=== PATIENT | male | born 1970 | race Caucasian/White ===

== ENCOUNTER 2020-04-23 06:48 | Observation (INO) ==
--- NOTE | 2020-04-21 08:55 | Anesthesiology Consultation ---
Date of Service April 21, 2020 Assessment & Plan (1) Encounter for pre-operative examination: COVID Status: As of 04/21 nurse assessment, patient denies travel to endemic area, known exposure/sick contacts, symptoms, or testing for coronavirus. Chart Review Chart Review: Acceptable Risk for Surgery and Patient NOT seen in Pre Admission Testing History Surgery Operation Date: 04/23/20 08:00 Proposed Procedures p Biventricular ICD Implant w/Anesthesia - Tiffanie Kinsey DO Height/Weight Height: 6 ft 3 in Weight: 145.15 kg Allergies Allergy/AdvReac Type Severity Reaction Status Date / Time codeine AdvReac Mild UPSET Verified 04/21/20 07:32 STOMACH Medications Home Medications Medication Instructions Recorded Confirmed Last Taken furosemide 40 mg PO BID 04/21/20 04/21/20 Unknown metoprolol succinate 25 mg PO QAM 04/21/20 04/21/20 Unknown rosuvastatin 20 mg PO QAM 04/21/20 04/21/20 Unknown sacubitril-valsartan [Entresto] 1 tab PO BID 04/21/20 04/21/20 Unknown spironolactone 12.5 mg PO QAM 04/21/20 04/21/20 Unknown Past Medical History Medical History (Updated 04/21/20 @ 10:19 by Adam Gonsalez) Cardiomyopathy Nonischemic. EF 10-15% at diagnosis 08/[address] [facility] in acute CHF. EF improved to 22% by echo 01/2020 Hyperlipidemia Hypertension Myocardial Infarction AUGUST 2019 Prediabetes DIET CONTROLLED Sleep apnea USES CPAP Past Family History Family History Mother Family history of diabetes mellitus Past Surgical History Surgical History History of cardiac cath AUGUST 2019/NO STENTS History of tooth extraction Social History Smoking Status: Former smoker tobacco type: cigarettes Do You Dip or Chew Tobacco: No Smoking End Date: 2016 Hx Alcohol Use: Yes Alcohol type: beer alcohol intake frequency: a few times a month Hx Substance Use: No substance use type: does not use Testing Laboratory Results 03/24/20 WBC: 6.73 H/H: 16.4/49.1 PLATELETS: 213 SODIUM: 143 POTASSIUM: 4.2 CHLORIDE: 102 CO2: 28 BUN: 16 CREATININE: 1.1 GLUCOSE: 74 A1C: 5.8% Electrocardiogram Date: 08/21/19 Findings: + LBBB and + ST @ (107) Chest X-Ray Date: 08/18/19 Findings: + cardiomegaly Pericardial effusion not excluded. Mild prominence of the central pulmonary vasculature without overt pulmonary vascular congestion. Findings suggestive of COPD with no definite superimposed acute cardiopulmonary disease. Echocardiogram Date: 01/25/20 EF: 22% LV cavity is severely dilated. Mild cLVH. Diffuse HK to AK. LAE suggests diastolic LV dysfunction. LV diastolic dysfunction is present when systolic function is reduced. RV cavity is severely dilated and function is reduced. LA and RA are severely enlarged. No RA mass. Moderate to severe MR present. Moderate TR. Borderline dilated aortic root. The proximal inferior vena cava is dilated. Dilated IVC with reduced collapsibility with sniff indicates an elevated RA pressure of 15mmHg. PASP 56.5 -- moderate pulmonary HTN. No significant change from 08/2019 study.
[~2020-04-23 06:48] MED LIST: LR 15ML/HR IV SCH
[2020-04-23] MEDS ORDERED: LIDOCAINE HCL 1% 20 ML VIAL ONE (06:53)
[2020-04-23] MEDS ORDERED: BUPIVACAINE 0.25% 30 ML VIAL ONE (06:54)
[2020-04-23] MEDS ORDERED: BACITRACIN INJ 50,000 UNIT VIAL ONE (06:54)
[2020-04-23] MEDS ORDERED: fentaNYL citrate 100 MCG/2 ML VIAL ONE (07:12)
[2020-04-23] MEDS ORDERED: MIDAZOLAM HCL 1 MG/ML 2ML VIAL ONE (07:13)
[2020-04-23] MEDS ORDERED: KETAMINE HCL INJ 50 MG/ML 10 ML VIAL ONE (07:16)
[2020-04-23] MEDS ORDERED: CEFAZOLIN 250 MG/ML 1 GM VIAL ONE (07:19)
[2020-04-23] MEDS ORDERED: PHENYLEPHRINE HCL 10 MG/ML VIAL ONE (07:31)
[2020-04-23] MEDS ORDERED: PROPOFOL IV EMULSION 10 MG/ML 20 ML VIAL IV ONE ×3 (07:31→09:33)
[2020-04-23] MEDS ORDERED: ePHEDrine sulfate 50 MG/ML AMP ONE (07:31)
[2020-04-23] MEDS ORDERED: LIDOCAINE HCL 2% 2 ML VIAL/AMP(20MG/ML) INFIL ONE (07:31)
[2020-04-23] MEDS ORDERED: ONDANSETRON INJ 2 MG/ML 2 ML VIAL IV PRN (07:46)
[2020-04-23] MEDS ORDERED: PROMETHAZINE HCL 6.25 MG in SODIUM CHLORIDE 0.9% 50 ML IV PRN (07:46)
[2020-04-23] MEDS ORDERED: fentaNYL citrate 100 MCG/2 ML VIAL IV PRN (07:46)
[2020-04-23] MEDS ORDERED: ePHEDrine sulfate 50 MG/ML AMP IV PRN (07:46)
[2020-04-23] MEDS ORDERED: ATROPINE SULFATE 0.1 MG/ML 10ML SYR IV PRN (07:46)
--- NOTE | 2020-04-23 07:56 | History & Physical Bridge Note ---
Date of Service April 23, 2020 History & Physical Bridge Note I have examined the patient, reviewed the History & Physical and in the interval since the performance of the History & Physical I have noted the following changes of clinical significance: no changes noted
[2020-04-23] MEDS ORDERED: OXYCODONE/ACETAMINOPHEN 5mg/325mg TAB PO PRN (10:45)
[2020-04-23] MEDS ORDERED: ACETAMINOPHEN 325 MG TAB PO PRN (10:45)
--- NOTE | 2020-04-23 10:48 | Operative Report ---
Post Operative Report Pre & Post Diagnosis NICM, LBBB, Chronic Heart failure with reduced EF-NHHA Class II Operation Date: 04/23/20 08:00 <No data on this case meets the specified criteria> I identified the patient and participated in the time-out.: Yes Procedure Operation Date: 04/23/20 08:00 Actual Procedures p ICD Biventricular Implant - Tiffanie Kinsey DO Surgeon Tiffanie Kinsey, Chute Operator none Estimated Blood Loss 20 Findings Consistent with Post-Op Diagnosis Specimens none Description of Procedure see official report I attest to the content of the Intraoperative Record and any orders documented therein. Any exceptions are noted below.
--- NOTE | 2020-04-23 10:53 | Discharge Summary ---
Date of Service April 24, 2020 Admission HPI Per Admitting Provider Pt admitted for elective BIV ICD Admission Exam Per Admitting Provider aaox3, NAD NC/AT, EOMI Supple No JVD Nrl S1/S2, No murmur CTA b/l no w/r/r soft nt/nd no LE edema b/l skin intact no focal deficits Principal Diagnosis NICM s/p BiV HIS bundle ICD Discharge Exam aaox3, NAD NC/AT, EOMI Supple No JVD Nrl S1/S2, No murmur CTA b/l no w/r/r soft nt/nd no LE edema b/l skin intact no focal deficits left pectoral incision intact, no hematoma mild ecchymosis Discharge Data Allergies Allergy/AdvReac Type Severity Reaction Status Date / Time codeine AdvReac Mild UPSET Verified 04/23/20 07:01 STOMACH Procedures Performed Operation Date: 04/23/20 08:00 Actual Procedures p ICD Biventricular Implant - Tiffanie Kinsey, Ordered Studies ECG: AP-His Bundle Paced CXR: Leads in position No PTX BiV ICD Interrogation: Normal function and lead testing since implant 04/23/20 07:30 EP Lab Images for PACS ONCE Hospital Course (1) NICM (nonischemic cardiomyopathy): (2) LBBB (left bundle branch block): (3) Chronic HFrEF (heart failure with reduced ejection fraction): Total Time Total Time Spent Total Time Spent (In Minutes): 40 Total Time Includes: Examination of the Patient, Discharge Planning, Medication Reconciliation and Other Discharge Plan Discharge Items Reason For Visit: NONISCHEMIC CARDIOMYOPATHY Discharge Diagnosis: NICM s/p BiV HIS bundle ICD Condition on Discharge: Good Activity: As commented below Activity Comment: do not lift the left elbow over the left shoulder for 1 month Lifting: No more than 10 pounds Lifting Comment: do not lift more than 10 pounds with the left arm for 2 weeks Bathing: Keep incision dry Bathing Comment: keep dressing on and area dry until your wound check next week Sexual Activity: After two weeks Driving/Machine Use: Resume 1 day after discharge Non-emergency contact: Environmental Technology Professor Call non-emergency contact if: you have any medication questions Diet: Resume previous diet Addtl Attending Provider Instructions: Device and wound check next week at [facility] as scheduled Pending Studies at Discharge: No Stand-Alone Forms: My [facility] Prescriptions: Continued furosemide 40 mg Tablet 40 mg PO BID RF: 0 spironolactone 25 mg Tablet 12.5 mg PO QAM RF: 0 metoprolol succinate 25 mg Tablet Extended Release 24 Hr 25 mg PO QAM RF: 0 rosuvastatin 20 mg Tablet 20 mg PO QAM RF: 0 Entresto 97-103 mg Tablet 1 tab PO BID RF: 0 Admission Data Attending Provider: Tiffanie Kinsey Primary Care Provider: Jada Rojas
--- NOTE | 2020-04-23 11:32 | Anesthesiology Progress Note ---
Date of Service April 23, 2020 Anesthesia Post Procedure Vital Signs Vital Signs: Temp Pulse Resp BP Pulse Ox 04/23/20 11:20 70 20 114/66 95 04/23/20 11:05 70 20 100/66 95 04/23/20 10:50 71 20 96/56 L 95 04/23/20 07:00 37.3 C 78 18 120/55 L 95 Transfer of Care Handoff Completed per policy Notes Mental Status: alert / awake / arousable Patient Amnestic to Procedure: Yes Nausea / Vomiting: adequately controlled Pain: adequately controlled Airway Patency, RR, SpO2: stable & adequate BP & HR: stable & adequate Hydration State: stable & adequate Anesthetic Complications: no major complications apparent
[2020-04-23] MEDS: FUROSEMIDE 40 MG TAB PO SCH (20:16)
[2020-04-23] MEDS: SACUBITRIL-VALSARTAN 97-103 MG TAB PO SCH (20:17)
[2020-04-24 05:18] VITALS: TEMP 98.2
--- NOTE | 2020-04-24 06:03 | Electrocardiogram Report ---
Test Reason : Blood Pressure : / mmHG Vent. Rate : 071 BPM Atrial Rate : 071 BPM P-R Int : 198 ms QRS Dur : 198 ms QT Int : 508 ms P-R-T Axes : 032 041 235 degrees QTc Int : 552 ms AV dual-paced rhythm with frequent ventricular-paced complexes Abnormal ECG No previous ECGs available Confirmed by Hernan Marcum ([id number]) on 04/24/2020 6:02:52 AM Referred By: Tiffanie Kinsey Confirmed By:Hernan Marcum
[2020-04-24 08:24] VITALS: O2SAT 96
--- NOTE | 2020-04-24 08:24 | XRay Report ---
XR chest 2V PA/lateral CLINICAL HISTORY: post BiV HIS Bundle ICD COMPARISON STUDY: No previous studies for comparison. FINDINGS: The heart is mildly enlarged. There is a left subclavian pacer/defibrillator. There is no p neumothorax. There is no failure. There is no focal pulmonary consolidation. There are no pleural eff usions.[ IMPRESSION: No active disease in the chest. ACT 112: Negative or not required by law. Electronically signed by: Karlo Christensen M.D. 04/24/2020 8:23 AM
[2020-04-24 08:26] VITALS: PULSE 69
[2020-04-24] MEDS: SACUBITRIL-VALSARTAN 97-103 MG TAB PO SCH (08:29)
[2020-04-24] MEDS: FUROSEMIDE 40 MG TAB PO SCH (08:30)
[2020-04-24] MEDS ORDERED: ROSUVASTATIN CALCIUM 20 MG TAB PO SCH (09:00)
[2020-04-24] MEDS ORDERED: SPIRONOLACTONE 12.5 MG TAB PO SCH (09:00)
[2020-04-24] MEDS ORDERED: METOPROLOL SUCC 25MG EXT REL TAB PO SCH (09:00)
[2020-04-24 09:02] VITALS: BP 110/67
--- NOTE | 2020-04-30 03:15 | Operative Report (OR) ---
DATE OF OPERATION: 04/23/2020 PREOPERATIVE DIAGNOSES: Nonischemic cardiomyopathy, chronic heart failure with reduced ejection fraction, [place] Heart Association class 3, ejection fraction 10-15%, left bundle branch block. POSTOPERATIVE DIAGNOSES: Nonischemic cardiomyopathy, chronic heart failure with reduced ejection fraction, [place] Heart Association class 3, ejection fraction 10-15%, left bundle branch block. PROCEDURE: Biventricular rate responsive implantable cardiac defibrillator with the LV lead over the His bundle, along with intracardiac electrogram mapping of the His bundle and peripheral venogram, all under fluoroscopic guidance as well as a venogram of the coronary sinus. SURGEON: Tiffanie Kinsey DO ASSISTANTS: None. ANESTHESIA: Monitored anesthetic care administered via anesthesiology. Please defer to their notes for complete details, but they gave 2 mg of Versed, 100 mcg fentanyl, 1000 mg propofol and 400 mg of ketamine. PROCEDURE TIME: 8-10:32. INTRAVENOUS FLUIDS: 150 mL. BLOOD LOSS: 20 mL. CONTRAST: 33 mL. ANTIBIOTICS: 3 grams of Ancef. COMPLICATIONS: None. CONDITION: Stable. URINE OUTPUT: Not applicable. SPECIMENS: None. FINDINGS: See below. DRAINS: None. INDICATIONS: This is a 49-year-old gentleman with past medical history for nonischemic cardiomyopathy diagnosed in August 2019 with an ejection fraction of 10-15% that remains well on repeat studies, chronic heart failure with reduced ejection fraction. [place] Heart Association class 3, left bundle branch block, hyperlipidemia, history of tobacco disorder, obesity, prediabetic. The patient was recommended biventricular defibrillator. CONSENT: Consent was obtained prior to the patient going into electrophysiology lab. The patient was informed of the risks, benefits and alternative procedure. Risks include but not limited to sudden cardiac , cardiac arrhythmias, cerebrovascular accident, myocardial infarction, injury to the blood vessels, chamber of the heart, lung, bleeding, and infection. The patient understood these risks and agrees to proceed. Informed consent was obtained. DESCRIPTION OF THE PROCEDURE: The patient was brought into the electrophysiology lab in a fasting state. He was connected to continuous afterschool. Timeout was performed to ensure patient identity and procedure correctly. The patient was prepped and draped over the left infraclavicular space in normal surgical standard fashion. Ponder precautions were maintained throughout the procedure. The patient received prophylactic antibiotics prior to incision. Ponder precautions were maintained throughout the procedure. Monitored anesthetic care was given throughout the procedure for patient's comfort level via anesthesiology. A 10 mL of 1% lidocaine, bupivacaine mixture were given in the left deltopectoral groove. Incision was made in left deltopectoral groove. Blunt dissection was performed down to identify the cephalic vein, cephalic vein was identified and isolated using 0 silk ties. Then a peripheral venogram was performed with 10 mL of IV contrast to identify the axillary vein and then venous axillary access was obtained through a needlestick without any problems. Going back to the cephalic area, I nicked the vein with an 11 blade and a guidewire was inserted without any resistance. An 8-[place] sheath was inserted over the guidewire without any resistance. Dilator was removed and a second guidewire was inserted through the 8-[place] sheath to allow for retained venous access. Sheath was removed and a 9.5-[place] sheath was inserted over one of the guidewires through the cephalic vein without any difficulties. The dilator and the guidewire were removed and the right ventricular defibrillator lead was advanced into right ventricle and positioned in right ventricular apex under fluoroscopic guidance. There was adequate pacing and sensing thresholds and no diaphragmatic stimulation with high output pacing. The 9.5-[place] sheath was peeled away and lead was fixated to pectoralis muscle using 0 silk suture. An 8-[place] sheath was inserted over the retained guidewire through the cephalic access. The guidewire and dilator removed. The right atrial lead was advanced into right atrium and positioned to atrial appendage under fluoroscopic guidance. There was adequate pacing and sensing thresholds and no diaphragmatic stimulation with high output pacing. The 8-[place] sheath was peeled away and lead was fixated to pectoralis muscle using 0 silk suture. Through the axillary stick, first a 9.5-[place] sheath was inserted over the guidewire without any resistance. The guidewire and dilator were removed. Then an MPX outer sheath and Medtronic coronary sinus sheath was advanced into right atrium. The guidewire and dilator were removed. Then, the coronary sinus was cannulated using a Biosense Decapolar coronary sinus diagnostic catheter and then MPX sheath was advanced over it. Then a venogram of the coronary sinus was performed. The patient had no real good options for a posterolateral branch, so I opted to then perform a His bundle, so the MPX lead was removed and first I tried the His preformed J sheath and advanced that into the right atrium, but I was having difficulty finding the His through intracardiac mapping so I switched out the preformed J His sheath for the deflectable His C304 sheath. This was advanced into the right atrium and then did unipolar mapping with the His lead through the sheath and found intracardiac mapping of the His bundle region. The lead was then screwed in and there was adequate pacing and sensing thresholds and no diaphragmatic stimulation with high output pacing. The deflectable His sheath was split under fluoroscopic guidance. Then the 9.5-[place] sheath was split and the His sheath was secured to the pectoralis muscle using 0 silk ties. A defibrillator pocket was created using blunt dissection over the pectoralis muscle within the pectoral fascia. The pocket was flushed with copious amounts of bacitracin saline wash and inspected for hemostasis. The leads were then attached to the generator making sure that the pins were in appropriate position, passed set screw and set screws were all tightened. The generator was then placed in the pocket, making sure that the leads were lying flat beneath the device. The incision was then closed in 3-layer fashion with 2-0 Vicryl interrupted suture followed by 3-0 Vicryl interrupted suture followed by a 4-0 Monocryl running stitch and Dermabond was applied. EQUIPMENT: 1. The generator is a MedL-3 [employer] DES[employer] RELEASE ENGINEER-D SureScan [id number], serial number [id number]. 2. Right atrial lead Medtronic 5076-52 cm, serial number [id number]. 3. Right ventricular lead, Medtronic 6935M-62 cm, serial [id number]. 4. The His lead is a Medtronic 3830-69 cm, serial number [id number]. INTRACARDIAC MAPPING: AH was 58 milliseconds, HV was 95 milliseconds. The QRS needed was 194 milliseconds, QRS with His pacing was 90 milliseconds. INTRAOPERATIVE LEAD DIAGNOSTICS: 1. Right atrial lead: P-wave 7.1 millivolts, impedance 745 ohms, threshold 0.4 volts at 0.4 milliseconds. 2. Right ventricular lead: R-wave 15.9 millivolts, impedance 730 ohms, threshold 0.3 volts at 0.4 milliseconds. 3. His bundle lead impedance 570 ohms, threshold 0.5 volts at 1 millisecond. FINAL MEASUREMENTS THROUGH THE DEVICE: 1. Right atrial lead: P waves 4 millivolts, impedance 494 ohms, threshold 0.5 volts at 0.4 milliseconds. 2. Right ventricular lead: R-wave 17.4 millivolts, impedance 551 ohms, threshold 0.5 volts at 0.4 milliseconds. 3. The RV coil is 81. 4. His bundle lead impedance 494 ohms, threshold 0.75 volts at 1.0 milliseconds. FINAL PARAMETERS: DDDR with a low rate of 70 and upper tracking rate of 140, right atrial and right ventricular amplitude 3.5 volts, pulse width 0.4 milliseconds, sensitivity 0.3 millivolts. Left ventricular/His bundle 3 volts at 1 millisecond. VT monitor zone at 140 beats per minute for 32 detection intervals, VT zone at 167 beats per minute for 16 detection intervals and VF zone at 200 beats per minute for 30/40 detection intervals. IMPRESSION: Successful biventricular (His bundle) rate responsive implantable cardiac defibrillator implantation along with peripheral venogram and coronary sinus venogram as well as intracardiac electrogram mapping of the His bundle done under fluoroscopic guidance secondary to nonischemic cardiomyopathy, left bundle branch block and chronic heart failure secondary to reduced ejection fraction. PLAN: Monitor patient overnight, 12-lead ECG, chest x-ray. He cannot lift his left elbow below shoulder for 1 month. He cannot lift more than 10 pounds with the left arm for 2 weeks. He is to keep the dressing on and dry until his wound check in [place] in 1 week. I attest to the content of the Intraoperative Record and any orders documented therein. Any exception s are noted below.
== END 2020-04-24 09:30 | disposition home or self-care (01) ==
LOC: 1E 06:48 → EP 06:48
PROC: EPB.ICD (2020-04-23 08:00)
DX: E66.01 Morbid (severe) obesity due to excess calories; I44.7 Left bundle-branch block, unspecified; Z88.6 Allergy status to analgesic agent; Z68.41 Body mass index [BMI] 40.0-44.9, adult; I50.22 Chronic systolic (congestive) heart failure; R73.03 Prediabetes; I42.8 Other cardiomyopathies; Z87.891 Personal history of nicotine dependence; Z79.899 Other long term (current) drug therapy; I27.20 Pulmonary hypertension, unspecified; G47.33 Obstructive sleep apnea (adult) (pediatric)

== ENCOUNTER 2023-05-24 08:09 | Observation (INO) ==
--- NOTE | 2023-05-16 09:36 | Anesthesiology Consultation ---
Date of Service May 16, 2023 Assessment & Plan (1) Encounter for pre-operative examination: - COVID screening: Per assessment on 05/13: No known COVID-19 positive contacts or current COVID-19 related symptoms. Travel screen negative. At surgeon discretion if preop Covid testing being done. - Check BSG AM DOS - Preop testing: No recent CBC. Will check CBC DOS. - Cardiology visit (05/09/23): "Here today for cardiology follow up and preoperative risk stratification. He is planning to have his gall bladder removed at [facility].. In terms of preop risk assessment, per Mina Criteria, patient was counseled that he would be placed at a moderate risk (less than 6.6%)for any adverse perioperative cardiovascular events associated with cholecystectomy surgery. Patient is on a good medication regimen and no other cardiac testing or interventions would further lower that risk.Patient states he understands and is accepting ofthat risk and wishes to proceed with surgery." - PPM/ICD: Case reviewed with Dr. Guillen. He feels that if possible, would want [employer] pacer rep to be available perioperatively. Per Dominga Blanchard/Bryan NAPIER (Rep with [employer]) aware and will be available perioperatively* Chart Review Chart Review: Acceptable Risk for Surgery and Patient NOT seen in Pre Admission Testing Consults Requested none ASA ASA4 Proposed Anesthesia Anesthesia Type: General Anesthesia Line Insertion: Arterial line Risk / Benefits Reviewed With: PT / POA / Parent / Guardian, Accepts Plan and Informed Consent Obtained History Surgery Operation Date: 05/24/23 09:40 Proposed Procedures p Robotic assisted Laparoscopic Cholecystectomy, Possible Cholangiogram, Possible Open - Kirk Gilbert DO Height/Weight Height: 6 ft 3 in Weight: 122.47 kg Allergies Allergy/AdvReac Type Severity Reaction Status Date / Time codeine AdvReac Unknown UPSET Verified 05/24/23 08:39 STOMACH Medications Home Medications Medication Instructions Recorded Confirmed Last Taken furosemide 40 mg tablet 40 mg PO BID 04/21/20 05/24/23 05/24/23 06:30 rosuvastatin 20 mg tablet 20 mg PO QAM 04/21/20 05/24/23 05/24/23 06:30 sacubitril 97 mg-valsartan 103 mg 1 tab PO BID 04/21/20 05/24/23 05/24/23 06:30 tablet (Entresto) spironolactone 25 mg tablet 25 mg PO BID 04/21/20 05/24/23 05/24/23 06:30 dapagliflozin propanediol 10 mg 10 mg PO QAM 04/27/23 05/24/23 05/14/23 06:30 tablet (Farxiga) metoprolol succinate 200 mg 200 mg PO QAM 04/27/23 05/24/23 05/24/23 06:30 tablet,extended release 24 hr Active Medications Generic Name Dose Route Start Last Admin Trade Name Sage PRN Reason Stop Dose Admin Lactated Ringer's 1,000 mls @ 75 mls/hr 05/24/23 06:00 05/24/23 09:10 Lr IV 05/24/23 19:19 Not Given .[id number] MARIMAR Lactated Ringer's 1,000 mls @ 15 mls/hr 05/24/23 06:00 05/24/23 09:05 Lr IV 05/25/23 05:59 15 mls/hr .Q24H MARIMAR Administration NPO Date Last Intake of Fluids: 05/23/23 Time Last Intake of Fluids: 20:00 Date Last Intake of Solids: 05/23/23 Time Last Intake of Solids: 20:00 Past Medical History Medical History Cardiomyopathy Nonischemic. EF 10-15% at diagnosis 08/2019 when presented to [facility] in acute CHF. Hyperlipidemia Hypertension Myocardial Infarction 08/2019 Prediabetes Presence of combination internal cardiac defibrillator (ICD) and pacemaker [employer], implanted 2019 Sleep apnea Could note tolerate CPAP Exercise / Class Metabolic Activity III < 4 Walking/Shop/Light housework Past Family History Family History Mother Family history of diabetes mellitus Past Surgical History Surgical History History of cardiac cath 08/2019 > no stents History of tooth extraction Past Anesthesia History No Hx of Anesthesia Complications and No Family Hx of Anesthesia Complications History of PONV No Hx of PONV and No Hx of Motion Sickness Social History Smoking Status: Former smoker tobacco type: cigarettes Do You Dip or Chew Tobacco: No Smoking End Date: 10 yr ago Hx Alcohol Use: No Alcohol type: beer alcohol intake frequency: a few times a month Hx Substance Use: No substance use type: does not use Physical Exam Vital Signs Last Vital Signs Temp 36.8 C 05/24/23 08:36 Pulse 76 05/24/23 08:36 Resp 20 05/24/23 08:36 BP 114/73 05/24/23 08:36 Pulse Ox 95 05/24/23 08:36 O2 Del Method Room Air 05/24/23 08:36 Constitutional + obese; no acute distress ENMT Mouth: no dentition abnormality Thyromental Distance: > or= 3.5 Finger Breadths Mallampati Class: II Neck normal visual inspection, trachea midline and + facial hair; neck extension not limited Respiratory normal respiratory effort Auscultation: lungs clear to auscultation bilaterally Cardiovascular Rate/Rhythm: regular rate and regular rhythm Heart Sounds: + murmur Vessels: no carotid bruit Chest (Breasts) Chest: + pacemaker (AICD/Pacemaker Left Subclavian) Musculoskeletal Spine: normal cervical ROM and no pain with cervical ROM Extremities: full ROM of extremities Neurologic moves all extremities Motor/Sensory: no sensory deficit Psychiatric Orientation: alert and oriented x 3 Testing Laboratory Results 05/24/23 08:36 05/24/23 08:42 POC Glucose 105 H 05/09/23 SODIUM 140 POTASSIUM 4.4 CHLORIDE 104 CO2 25 BUN 11 CREATININE 0.9 GLUCOSE 103 HGBA1C 5.6% Electrocardiogram Date: 05/09/23 Atrial-sensed ventricular-paced rhythm at 75bpm. Echocardiogram Date: 09/23/21 Calculated EF 22%. Qualitative LV EF <2-%. Severe LVD. Moderately increased cLV wall thickness. Grade I DD. Septal motion consistent with IVCD. Severe LV HK. Biatrial dilatation. Mild to moderate TR. Moderately elevated RVSP. Cardiac Catheterization Date: 08/22/19 Coronary arteries are angiographically normal. LVEDP is elevated (28 mmhg). Recommendations: Non-ischemic cardiomyopathy. Other Testing Cardiac MRI Date: 08/23/19 Interpretation Summary 1. Cardiac MRi findings of severe biventricular dilation and systolic dysfunction. There is severe atypical midwall enhancement in the septum. There is also focal subendocardial scar noted in the mid to distal inferior and inferolateral segments, which is suggestive of infarction. There is also focal hypertrabeculation in the distal anterior segments (ratio of 2.2-3.2). Dyssynchrony is also noted. Overall these findings suggest a mixed etiology for cardiomyopathy. Primary non compaction may be considered, however these findings could also be secondary to severe LV dilation. 2. The left ventricular cavity size is severely enlarged.The LV wall thickness is normal.The left ventricular systolic function is severely reduced.The calculated LV ejection fraction is 16%. 3. The right ventricular cavity size is severely enlarged.The right ventricular systolic function is severely reduced.The calculated RV ejection fraction is 11%. 4. Severe mitral regurgitation noted. 5. Cholelithiasis. Pacer/ICD check Date: 05/09/23 Normal device function Zero events or alerts. Zero shocks. 1 year battery longevity. 1 nonsustained episodes of which the longest is 1 seconds with a ventricular rate of 188bpm. AP 83%. RVP 84%. LVP 84%. CONSTRUCTION MGR pacing 82.69%. AT/AF burden 0%.
[~2023-05-24 08:09] MED LIST changes: +INDOCYANINE GREEN 25 MG VIAL INJ PRN; +LACTATED RINGER'S 1,000 ML IV SCH
[2023-05-24 08:51] LABS: Basophils # (auto) 0.03 K/uL (0-0.2); Basophils % (auto) 0.5 %; Eosinophils % (auto) 1.6 %; Hematocrit (blood only) 45.9 % (42.0-52.0); Hemoglobin 16.4 g/dl (14.0-18.0); Immature Granulocytes # (auto) 0.02 K/uL (0.01-0.20); Immature Granulocytes % (auto) 0.3 %; Lymphocytes # (auto) 1.61 K/uL (1.2-3.4); Lymphocytes % (auto) 26.3 %; Mean Corpuscular Hemoglobin 31.2 pg (25.0-34.0); Mean Corpuscular Hgb Conc 35.7 g/dL (32.0-36.0); Mean Corpuscular Volume 87.3 fL (80.0-100.0); Mean Platelet Volume 8.9 fL (9.4-12.4); Monocytes # (auto) 0.47 K/uL (0.11-0.59); Monocytes % (auto) 7.7 %; Neutrophils # (auto) 3.89 K/uL (1.40-6.50); Neutrophils % (auto) 63.6 %; Platelet Count 191 K/uL (130-400); RDW Coefficient of Variation 12.4 % (11.5-14.5); Red Blood Count 5.26 M/uL (4.70-6.10); White Blood Count 6.12 K/ul (4.8-10.8)
[2023-05-24] MEDS ORDERED: PROPOFOL IV EMULSION 10 MG/ML 20 ML VIAL IV ONE (08:57)
[2023-05-24] MEDS ORDERED: ROCURONIUM BROMIDE 10 MG/ML 5 ML VIAL IV ONE ×5 (08:57)
[2023-05-24] MEDS ORDERED: LIDOCAINE 2% 2 ML VIAL/AMP(20MG/ML) INFIL ONE ×2 (08:58→08:59)
[2023-05-24] MEDS ORDERED: MIDAZOLAM HCL 1 MG/ML 2ML VIAL ONE (09:00)
[2023-05-24] MEDS ORDERED: fentaNYL citrate PF 100 MCG/2 ML VIAL ONE (09:00)
[2023-05-24] MEDS ORDERED: ePHEDrine sulfate 50 MG/ML AMP IV PRN (09:16)
[2023-05-24] MEDS ORDERED: FLUMAZENIL 0.1 MG/1 ML 10 ML VIAL IV PRN (09:16)
[2023-05-24] MEDS ORDERED: fentaNYL citrate PF 100 MCG/2 ML VIAL IV PRN (09:16)
[2023-05-24] MEDS ORDERED: PROMETHAZINE HCL 12.5 MG in SODIUM CHLORIDE 0.9% 50 ML IV PRN (09:16)
[2023-05-24] MEDS ORDERED: ATROPINE SULFATE 0.1 MG/ML 10ML SYR IV PRN (09:16)
[2023-05-24] MEDS ORDERED: ONDANSETRON INJ 2 MG/ML 2 ML VIAL IV PRN ×3 (09:16→16:10)
[2023-05-24] MEDS ORDERED: NALOXONE HCL 0.4 MG/1 ML VIAL/CARP IV PRN (09:16)
--- NOTE | 2023-05-24 09:27 | History & Physical Bridge Note ---
Date of Service May 24, 2023 History & Physical Bridge Note I have examined the patient, reviewed the History & Physical and in the interval since the performance of the History & Physical I have noted the following changes of clinical significance: no changes noted
[2023-05-24] MEDS ORDERED: KETAMINE 50 MG/5 ML SYRINGE ONE (09:56)
[2023-05-24] MEDS ORDERED: SUCCINYLCHOLINE CHLORIDE 20 MG/ML 10 ML VIAL IV ONE (09:57)
[2023-05-24] MEDS ORDERED: BUPIVACAINE/EPINEPHRINE 0.5% MPF 1:200,000 30 ML VIAL ONE (10:03)
--- NOTE | 2023-05-24 11:46 | Post Operative Brief Note ---
PG Immediate Post Op with CF Date of Surgery May 24, 2023 Pre & Post Diagnosis Operation Date: 05/24/23 09:40 Pre-Op Diagnosis: Gallstones Post-Op Diagnosis: Gallstones I identified the patient and participated in the time-out.: Yes Procedure Operation Date: 05/24/23 09:40 Actual Procedures p Robotic assisted Laparoscopic Cholecystectomy(Not Applicable) - Kirk Gilbert DO Surgeon Kirk Gilbert DO Material Assistant Belia Claros PA-C Estimated Blood Loss 5 Findings Consistent with Post-Op Diagnosis Specimens Specimen Description: A. Gallbladder and contents Anesthesia Type General Complications none Disposition Disposition: Recovery Room
--- NOTE | 2023-05-24 11:50 | Operative Report ---
PG Post Operative Report Pre & Post Diagnosis Operation Date: 05/24/23 09:40 Pre-Op Diagnosis: Gallstones Post-Op Diagnosis: Gallstones I identified the patient and participated in the time-out.: Yes Procedure Operation Date: 05/24/23 09:40 Actual Procedures p Robotic assisted Laparoscopic Cholecystectomy(Not Applicable) - Kirk Gilbert DO Surgeon Kirk Gilbert DO Bracelet Form Coverer Belia Claros PA-C Estimated Blood Loss 5 Findings Consistent with Post-Op Diagnosis Fluids see anesthesia record Specimens Gallbladder to pathology Drains None Anesthesia Type General Complications none Disposition Disposition: Recovery Room Indications 52 yo male with symptomatic cholelithiasis Description of Procedure The patient was brought to the operating room and placed in the supine position with both arms extended. At this time he underwent general endotracheal anesthesia without any problems. He was given appropriate pre-operative antibiotics. His abdomen prepped and draped in the usual sterile fashion. A timeout was called, the procedure was verified as robotic assisted laparoscopic cholecystectomy, possible open, possible intra-operative cholangiogram. Surgical, nursing and anesthesia teams agreed and the procedure was begun. After injection of 0.25% Marcaine with epinephrine, a supraumbilical vertical incision was made and carried down to the fascia using S-retractors. The abdominal wall was then elevated with towel clamps and abdomen entered using the Veress needle confirming position using the saline drop test. Pneumoperitoneum was established. 8mm robotic trocar was placed. Laparoscope was introduced. No injury from entry into the abdomen was visualized after inspection of the abdomen. Three further ports were placed under direct visualization. One 5mm insurance account assistant port in the right flank and two 8mm robotic ports in the right and left mid abdomen in the midclavicular line. The robot was then docked without issue and instruments were introduced into the abdomen under direct visualization. At this time the abdomen was inspected and the gallbladder identified. The gallbladder fundus was grasped and retracted cephalad. The gallbladder infundibulum was then grasped and retracted laterally. The cystic duct and cystic artery were then identified and skeletonized. The critical view of safety was obtained. Anatomy was confirmed with firefly. They were both then clipped twice proximally and once distally and then divided using scissors. The gallbladder was then taken off of the liver bed using electrocautery and placed in an endocatch bag and removed from the right mid abdominal port. The liver bed was then inspected and no bile leak or bleeding was evident. The trocars were then removed under direct visualization and no bleeding was present. Abdomen was desufflated. The skin was then closed using 4-0 Monocryl in a subcuticular fashion. Surgical glue was applied. Needle and sponge counts were correct x 2. At this time the patient was awoken from anesthesia and extubated having remained stable throughout the entire case. The patient was then transported to PACU in stable condition. The physician insurance account assistant was present scrubbed the entire case. She was essential in positioning, prepping and draping the patient, retraction and exposure, closure of the incisions and placement of the dressings. I attest to the content of the Intraoperative Record and any orders documented therein. Any exceptions are noted below.
[2023-05-24] MEDS ORDERED: MoRPHine SULFATE 2 MG/ML CARP IV PRN ×2 (11:55→16:10)
[2023-05-24] MEDS ORDERED: MoRPHine SULFATE 4 MG/ML 1 ML CARP\\VIAL IV PRN (11:55)
[2023-05-24] MEDS ORDERED: oxyCODONE/ACETAMINOPHEN 5mg/325mg TAB PO PRN ×2 (11:55)
[2023-05-24] MEDS ORDERED: SODIUM CHLORIDE 0.9% 1000ML 1,000 ML IV SCH (12:00)
--- NOTE | 2023-05-24 13:19 | Anesthesiology Progress Note ---
Date of Service May 24, 2023 Anesthesia Post Procedure Vital Signs Vital Signs: Temp Pulse Pulse Resp BP Pulse Ox O2 Del Method 05/24/23 13:16 36.4 C L 70 18 131/85 92 Nasal Cannula 05/24/23 13:00 36.4 C L 70 20 137/82 95 Nasal Cannula 05/24/23 12:50 70 20 139/76 96 Nasal Cannula 05/24/23 12:40 70 20 149/75 H 97 Nasal Cannula 05/24/23 12:30 70 20 143/83 H 95 Nasal Cannula 05/24/23 12:20 70 18 140/77 95 Nasal Cannula 05/24/23 12:10 67 20 132/74 99 Oxymask 05/24/23 12:08 36.0 C L 64 20 147/79 H 98 Oxymask 05/24/23 08:36 36.8 C 76 20 114/73 95 Room Air O2 Flow Rate 05/24/23 13:16 2 05/24/23 13:00 2 05/24/23 12:50 2 05/24/23 12:40 2 05/24/23 12:30 2 05/24/23 12:20 2 05/24/23 12:10 6 05/24/23 12:08 6 05/24/23 08:36 Pain Intensity Abdomen: Pain Intensity: 4 Transfer of Care Handoff Completed per policy Notes Mental Status: alert / awake / arousable Patient Amnestic to Procedure: Yes Nausea / Vomiting: adequately controlled Pain: adequately controlled Airway Patency, RR, SpO2: stable & adequate BP & HR: stable & adequate Hydration State: stable & adequate Anesthetic Complications: no major complications apparent
[2023-05-24] MEDS ORDERED: ACETAMINOPHEN 325 MG TAB PO PRN (16:10)
[2023-05-24] MEDS ORDERED: oxyCODONE HCL IR 5 MG TAB (IMMEDIATE RELEASE) PO PRN ×2 (16:10)
--- NOTE | 2023-05-24 16:19 | Hospitalist Consultation ---
Date of Consultation May 24, 2023 History of Present Illness Attending Physician: Kirk Gilbert DO History of Present Illness Pravin is a 52-year-old male with a history of nonischemic cardiomyopathy, left bundle branch block, chronic heart failure with reduced ejection fracture, and ICD placement with known EF of 22% who presented for cholecystectomy and who underwent uncomplicated robot-assisted lap bonny with 5 cc of blood loss. With slightly soft blood pressures postoperatively but no blood loss, has been recommended for overnight observation due to his comorbidities Allergies Allergy/AdvReac Type Severity Reaction Status Date / Time codeine AdvReac Unknown UPSET Verified 05/24/23 08:39 STOMACH Home Medications Medication Instructions Recorded Confirmed Type furosemide 40 mg tablet 40 mg PO BID 04/21/20 05/24/23 History rosuvastatin 20 mg tablet 20 mg PO QAM 04/21/20 05/24/23 History sacubitril 97 mg-valsartan 103 mg 1 tab PO BID 04/21/20 05/24/23 History tablet (Entresto) spironolactone 25 mg tablet 25 mg PO BID 04/21/20 05/24/23 History dapagliflozin propanediol 10 mg 10 mg PO QAM 04/27/23 05/24/23 History tablet (Farxiga) metoprolol succinate 200 mg 200 mg PO QAM 04/27/23 05/24/23 History tablet,extended release 24 hr oxycodone 5 mg tablet 5 - 10 mg PO .[id number] PRN pain, 05/24/23 Rx for initial therapy, max 6 tabs per day #15 tabs Patient History Medical History Cardiomyopathy Nonischemic. EF 10-15% at diagnosis 08/2019 when presented to [facility] in acute CHF. Hyperlipidemia Hypertension Myocardial Infarction 08/2019 Prediabetes Presence of combination internal cardiac defibrillator (ICD) and pacemaker [employer], implanted 2019 Sleep apnea Could note tolerate CPAP Surgical History (Updated 05/24/23 @ 12:48 by Nilda Ennis RN) History of cardiac cath 08/2019 > no stents History of tooth extraction Hx laparoscopic cholecystectomy (05/24/23) Robotic assisted Laparoscopic Cholecystectomy(Not Applicable) - Kirk Gilbert DO Family History Mother Family history of diabetes mellitus Social History Smoking Status: Former smoker Tobacco Type: Cigars Smoking End Date: 10 yr ago; Second Hand Exposure: No; Do You Dip or Chew Tobacco: No; Hx Alcohol Use: No Hx Substance Use: No Preferred Language: Korean Communication Ability: Effective Live Truck Operator Required: No Beliefs That Will Affect Care: None marital status: Current Living Situation: Spouse and Family Current Living Situation Comment: and dog current occupational status: employed How many Children do You have: 2 Other Information That Helps Us Care for You: No Feels Safe at Home: Yes Assistive Devices: None Results & Data Results & Data Vital Signs (Past 12 Hours) Vital Signs Temp Pulse Pulse Resp BP Pulse Ox O2 Del Method 05/24/23 16:10 37.0 C 70 18 97/58 L 97 Room Air 05/24/23 16:03 89/57 L 05/24/23 15:35 107/52 L 05/24/23 15:05 97/60 L 05/24/23 14:25 81/58 L 05/24/23 14:15 80/53 L 05/24/23 14:10 69 18 94/56 L 91 Room Air 05/24/23 13:40 71 18 118/84 91 Room Air 05/24/23 13:10 36.4 C L 70 18 131/85 92 Nasal Cannula 05/24/23 13:00 36.4 C L 70 20 137/82 95 Nasal Cannula 05/24/23 12:50 70 20 139/76 96 Nasal Cannula 05/24/23 12:40 70 20 149/75 H 97 Nasal Cannula 05/24/23 12:30 70 20 143/83 H 95 Nasal Cannula 05/24/23 12:20 70 18 140/77 95 Nasal Cannula 05/24/23 12:10 67 20 132/74 99 Oxymask 05/24/23 12:08 36.0 C L 64 20 147/79 H 98 Oxymask 05/24/23 08:36 36.8 C 76 20 114/73 95 Room Air O2 Flow Rate 05/24/23 16:10 05/24/23 16:03 05/24/23 15:35 05/24/23 15:05 05/24/23 14:25 05/24/23 14:15 05/24/23 14:10 05/24/23 13:40 05/24/23 13:10 2 05/24/23 13:00 2 05/24/23 12:50 2 05/24/23 12:40 2 05/24/23 12:30 2 05/24/23 12:20 2 05/24/23 12:10 6 05/24/23 12:08 6 05/24/23 08:36 PG Care Time/CCT Total # of Minutes Spent Total Time Spent with Patient: Total time spent is greater than 50% in coordination of care (as documented) at patient's floor/unit and/or counseling patient: Coding Diagnoses
--- NOTE | 2023-05-24 16:21 | Communication Note ---
Date of Service: May 24, 2023 Pt has NICM w/ AICD,EF 22%. Pt just had this afternoon, a Laparoscopic Cholecystectomy. Pt was stable throughout surgery and PACU. Pt was transferred to [facility] ,phase 2 , to be discharged from there to home. Pt's BP has consistently been in 90's systolic. Most recent BP was 87/59. These are residual effects of the anesthetic/surgery. I do not feel comfortable w/ D/C ing pt to home w/ these BP readings. I have expressed my concern to Dr Gilbert regarding this. He is in agreement and will admit the pt. overnight and contact the hospitalist for further in-house care, as needed. Otherwise, pt. is stable.
--- NOTE | 2023-05-24 17:39 | History & Physical Report ---
Date of Service May 24, 2023 Assessment & Plan (1) Chronic HFrEF (heart failure with reduced ejection fraction): Plan: Postoperative hypotension. -Likely secondary to anesthesia Patient is a 52-year-old male with history of cardiomyopathy , HFrEF with EF 22%, status post biventricular ICD, prediabetes, obesity, who underwent elective cholecystectomy today. Postoperatively he was found hypotensive. Given his history of cardiomyopathy and low EF it was decided to observe patient overnight. Per anesthesia, hypotensive secondary to anesthesia. Patient follows w/ [facility] cardiology. Patient took his metoprolol, furosemide, Entresto, and spironolactone this morning. Received IV fluids perioperatively. We will hold his evening diuretics such as Entresto and spironolactone. Patient can continue with metoprolol in the morning. Reassess volume status and blood pressure tomorrow morning. Currently patient is breathing comfortably on room air and he is clear to auscultation. No lower extremity edema noted. Blood pressure already improved at 107/66. Continue to closely monitor hemodynamic status overnight. Clear liquid diet ordered by surgery. History of Present Illness Chief Complaint: medicine consult - Post-operative hypotension Primary Care Provider: Jada Rojas PA-C Patient is a 52-year-old male with history of cardiomyopathy , HFrEF with EF 22%, status post biventricular ICD, prediabetes, obesity, who underwent elective cholecystectomy today. Patient found hypotensive postoperatively, and was monitored in PACU by anesthesia. There were no complications during surgery identified, no hemorrhaging. Given his history of cardiomyopathy and low EF, it was recommended that patient stays overnight in the hospital and be closely monitored. Patient tells me he takes metoprolol 200 mg daily, spironolactone 25 mg twice a day, Entresto twice a day, and furosemide daily. He took all these medications in the morning. Currently he is lying in bed in PACU, he is alert oriented answering appropriately. He overall feels well, denies any chest pain or shortness of breath. He is breathing comfortably on room air. He has only minimal abdominal discomfort, and he feels hungry. Discussed with the nurse at the bedside at PACU. Patient received IV fluids. He has a room assigned on telemetry and awaiting transfer upstairs. Allergies Allergy/AdvReac Type Severity Reaction Status Date / Time codeine AdvReac Unknown UPSET Verified 05/24/23 08:39 STOMACH Home Medications Medication Instructions Recorded Confirmed Type furosemide 40 mg tablet 40 mg PO BID 04/21/20 05/24/23 History rosuvastatin 20 mg tablet 20 mg PO QAM 04/21/20 05/24/23 History sacubitril 97 mg-valsartan 103 mg 1 tab PO BID 04/21/20 05/24/23 History tablet (Entresto) spironolactone 25 mg tablet 25 mg PO BID 04/21/20 05/24/23 History dapagliflozin propanediol 10 mg 10 mg PO QAM 04/27/23 05/24/23 History tablet (Farxiga) metoprolol succinate 200 mg 200 mg PO QAM 04/27/23 05/24/23 History tablet,extended release 24 hr oxycodone 5 mg tablet 5 - 10 mg PO .[id number] PRN pain, 05/24/23 Rx for initial therapy, max 6 tabs per day #15 tabs Past Med/Surg History Medical History Cardiomyopathy Nonischemic. EF 10-15% at diagnosis 08/[address] [facility] in acute CHF. Hyperlipidemia Hypertension Myocardial Infarction 08/2019 Prediabetes Presence of combination internal cardiac defibrillator (ICD) and pacemaker Medtronic, implanted 2019 Sleep apnea Could note tolerate CPAP Surgical History History of cardiac cath 08/2019 > no stents History of tooth extraction Hx laparoscopic cholecystectomy (05/24/23) Robotic assisted Laparoscopic Cholecystectomy(Not Applicable) - Kirk Gilbert, DO Family History Mother Family history of diabetes mellitus Social History Smoking Status: Never smoker Tobacco Type: Cigars Smoking End Date: 10 yr ago; Second Hand Exposure: No; Do You Dip or Chew Tobacco: No; Hx Alcohol Use: No Hx Substance Use: No Preferred Language: Lithuanian Communication Ability: Effective 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 Beliefs That Will Affect Care: None marital status: Current Living Situation: Spouse Current Living Situation Comment: and dog current occupational status: employed How many Children do You have: 2 Other Information That Helps Us Care for You: No Feels Safe at Home: Yes Safety Concerns: Feels Safe At This Time Assistive Devices: None Review of Systems Review of Systems: All systems reviewed & are unremarkable except as noted in Subjective Physical Exam Constitutional: WD/WN, vitals as above Eyes: PERRL, conjunctivae normal, anicteric sclerae ENMT: external ear and nose normal, oropharynx normal Neck: + thick neck Respiratory: normal respiratory effort, lungs clear to auscultation Cardiovascular: RRR, no murmur, no edema Chest (Breasts): Chest: normal inspection of chest Gastrointestinal (Abdomen): Inspection/Auscultation: normal bowel sounds (soft obese abdomen w/ surg. incisions) Musculoskeletal: no cyanosis or clubbing, extremities motor strength 5/5 Skin: no rashes, warm and dry Neurologic: PERRL, EOMI, accommodation nl, no face palsy, no dysarthria Psychiatric: A+Ox3, euthymic affect Results & Data Results & Data Vital Signs (Past 12 Hours) Vital Signs Temp Pulse Pulse Resp BP Pulse Ox O2 Del Method 05/24/23 17:15 36.5 C 70 16 98/61 L 98 Room Air 05/24/23 16:10 37.0 C 70 18 97/58 L 97 Room Air 05/24/23 16:03 89/57 L 05/24/23 15:35 107/52 L 05/24/23 15:05 97/60 L 05/24/23 14:25 81/58 L 05/24/23 14:15 80/53 L 05/24/23 14:10 69 18 94/56 L 91 Room Air 05/24/23 13:40 71 18 118/84 91 Room Air 05/24/23 13:10 36.4 C L 70 18 131/85 92 Nasal Cannula 05/24/23 13:00 36.4 C L 70 20 137/82 95 Nasal Cannula 05/24/23 12:50 70 20 139/76 96 Nasal Cannula 05/24/23 12:40 70 20 149/75 H 97 Nasal Cannula 05/24/23 12:30 70 20 143/83 H 95 Nasal Cannula 05/24/23 12:20 70 18 140/77 95 Nasal Cannula 05/24/23 12:10 67 20 132/74 99 Oxymask 05/24/23 12:08 36.0 C L 64 20 147/79 H 98 Oxymask 05/24/23 08:36 36.8 C 76 20 114/73 95 Room Air O2 Flow Rate 05/24/23 17:15 05/24/23 16:10 05/24/23 16:03 05/24/23 15:35 05/24/23 15:05 05/24/23 14:25 05/24/23 14:15 05/24/23 14:10 05/24/23 13:40 05/24/23 13:10 2 05/24/23 13:00 2 05/24/23 12:50 2 05/24/23 12:40 2 05/24/23 12:30 2 05/24/23 12:20 2 05/24/23 12:10 6 05/24/23 12:08 6 05/24/23 08:36 Laboratory Results 05/24/23 05/24/23 Range/Units 08:42 08:36 WBC 6.12 (4.8-10.8) K/ul RBC 5.26 (4.70-6.10) M/uL Hgb 16.4 (14.0-18.0) g/dl Hct 45.9 (42.0-52.0) % MCV 87.3 (80.0-100.0) fL MCH 31.2 (25.0-34.0) pg MCHC 35.7 (32.0-36.0) g/dL RDW Std Deviation 39.0 (36.4-46.3) fL RDW Coeff of Katiana 12.4 (11.5-14.5) % Plt Count 191 (130-400) K/uL MPV 8.9 L (9.4-12.4) fL Immature Gran % (Auto) 0.3 % Neut % (Auto) 63.6 % Lymph % (Auto) 26.3 % [place] % (Auto) 7.7 % Eos % (Auto) 1.6 % Baso % (Auto) 0.5 % Neut # (Auto) 3.89 (1.40-6.50) K/uL Lymph # (Auto) 1.61 (1.2-3.4) K/uL [place] # (Auto) 0.47 (0.11-0.59) K/uL Eos # (Auto) 0.10 (0-0.50) K/uL Baso # (Auto) 0.03 (0-0.2) K/uL Immature Gran # (Auto) 0.02 (0.01-0.20) K/uL POC Glucose 105 H (70-99) mg/dl Medications Administered Current Inpatient Medications Acetaminophen (Acetaminophen 325 Mg Tab) 650 mg PO Q6H PRN PRN Reason: Pain & Pre PT Stop: 06/23/23 16:09 Lactated Ringer's (Lr) 1,000 mls @ 75 mls/hr IV .[id number] MARIMAR Stop: 05/24/23 19:19 Last Admin: 05/24/23 09:10 Dose: Not Given Cefazolin Sodium (Ancef 3000mg) 72.5 mls @ 130 mls/hr IV PREOP MARIMAR; Protocol Stop: 05/24/23 18:00 Last Admin: 05/24/23 10:21 Dose: 130 mls/hr Lactated Ringer's (Lr) 1,000 mls @ 15 mls/hr IV .Q24H MARIMAR Stop: 05/25/23 05:59 Last Infusion: 05/24/23 10:21 Dose: Infused Sodium Chloride (Nss 1000ml) 1,000 mls @ 15 mls/hr IV .Q24H MARIMAR Stop: 05/25/23 11:59 Indocyanine Green (Indocyanine Green 25 Mg Vial) 2.5 mg INJ ONE PRN PRN Reason: PROP CUTTER Stop: 05/24/23 18:00 Last Admin: 05/24/23 09:29 Dose: 2.5 mg Morphine Sulfate (Morphine Sulfate 4 Mg/Ml 1 Ml Carp\Vial) 4 mg IV Q3H PRN PRN Reason: Pain (6,7,8,9,10) Stop: 06/07/23 11:54 Morphine Sulfate (Morphine Sulfate 2 Mg/Ml Carp) 2 mg IV Q3H PRN PRN Reason: Pain (1,2,3,4,5) & Pre PT Stop: 06/07/23 11:54 Morphine Sulfate (Morphine Sulfate 2 Mg/Ml Carp) 2 mg IV Q3H PRN PRN Reason: Pain (1,2,3,4,5) & Pre PT Stop: 06/07/23 16:09 Ondansetron HCl (Ondansetron Inj 2 Mg/Ml 2 Ml Vial) 4 mg IV Q6H PRN PRN Reason: Nausea And Vomiting Stop: 05/25/23 11:54 Ondansetron HCl (Ondansetron Inj 2 Mg/Ml 2 Ml Vial) 4 mg IV Q4H PRN PRN Reason: Nausea And Vomiting Stop: 06/23/23 16:09 Oxycodone HCl (Oxycodone Hcl Ir 5 Mg Tab (Immediate Release)) 10 mg PO Q4H PRN PRN Reason: SEVERE Pain (7,8,9,10) Stop: 06/07/23 16:09 Oxycodone HCl (Oxycodone Hcl Ir 5 Mg Tab (Immediate Release)) 5 mg PO Q4H PRN PRN Reason: MODERATE Pain (4,5,6) & Pre PT Stop: 06/07/23 16:09 Oxycodone/Acetaminophen (Oxycodone/Acetaminophen 5mg/325mg Tab) 2 tab PO Q4H PRN PRN Reason: SEVERE Pain (7,8,9,10) Stop: 06/07/23 11:54 Oxycodone/Acetaminophen (Oxycodone/Acetaminophen 5mg/325mg Tab) 1 tab PO Q4H PRN PRN Reason: MODERATE Pain (4,5,6) & Pre PT Stop: 06/07/23 11:54 Code Status & VTE Plan VTE Prophylaxis Plan VTE Prophylaxis will be ordered: Yes
--- NOTE | 2023-05-25 08:24 | Surgery Progress Note ---
Date of Service May 25, 2023 Assessment & Plan (1) Hx laparoscopic cholecystectomy: Plan: POD 1 robotic assisted cholecystectomy Patient was admitted over night for observation of low blood pressure noted in PACU Patient sitting up in chair comfortable, vss, has been normotensive since 05/24/26 at 1800 Reports pain mild at incisional areas controlled with medication tolerating breakfast, denies nausea at present time passing small amt flatus, no BM post operative port sites covered with dermabond, clean and dry no s/s of infection noted, patient wishes to go home, patient is stable from a surgical stand point is to f/u in office in [address] Gilbert / call office with concerns patient denies questions patient will need to see cardiology prior to discharge. Admission and Anticipated Discharge Date Admission Date: May 24, 2023 Subjective POD 1 robotic assisted cholecystectomy Patient was admitted over night for observation of low blood pressure Patient sitting up in chair comfortable, vss Reports pain mild at incisional areas controlled with medication tolerating breakfast, denies nausea presently passing small amt flatus, no BM Review of Systems Constitutional: no fever and no chills Respiratory: no dyspnea Gastrointestinal: + abdominal pain (surgical incisions); no nausea and no vomiting Physical Exam Physical Exam: pt alert/awake sitting in chair watching tv Constitutional: well nourished, cooperative and comfortable; no acute distress Respiratory: normal respiratory effort; no respiratory distress and does not use accessory muscles Cardiovascular: Rate/Rhythm: regular rate BP 116/69. BP WNL since 1800 on 05/24/23 Gastrointestinal (Abdomen): Inspection/Auscultation: + abdominal surgical incision (3 port sites clean dry covered with dermabond no s/s of infection noted.) Percussion/Palpation: abdomen soft Results & Data Vital Signs (Past 12 Hours) Vital Signs Temp Pulse Pulse Resp BP Pulse Ox O2 Del Method 05/25/23 07:32 98.8 F 71 18 116/69 91 Room Air 05/25/23 03:01 99.1 F 70 18 122/72 90 Room Air 05/24/23 23:00 88 05/24/23 22:40 98.6 F 70 18 116/70 94 Room Air PG Care Time/CCT Total # of Minutes Spent Total Time Spent with Patient: Total time spent is greater than 50% in coordination of care (as documented) at patient's floor/unit and/or counseling patient: Coding Level of Care Code 63740 Post Operative Follow-Up Diagnoses Hx laparoscopic cholecystectomy Z90.49
[2023-05-25 08:45] LABS: Basophils # (auto) 0.03 K/uL (0-0.2); Basophils % (auto) 0.4 %; Eosinophils # (auto) 0.06 K/uL (0-0.50); Eosinophils % (auto) 0.7 %; Hematocrit (blood only) 44.1 % (42.0-52.0); Hemoglobin 15.6 g/dl (14.0-18.0); Immature Granulocytes # (auto) 0.03 K/uL (0.01-0.20); Immature Granulocytes % (auto) 0.4 %; Lymphocytes # (auto) 1.18 K/uL (1.2-3.4); Lymphocytes % (auto) 14.4 %; Mean Corpuscular Hemoglobin 30.9 pg (25.0-34.0); Mean Corpuscular Hgb Conc 35.4 g/dL (32.0-36.0); Mean Corpuscular Volume 87.3 fL (80.0-100.0); Mean Platelet Volume 9.1 fL (9.4-12.4); Monocytes # (auto) 0.34 K/uL (0.11-0.59); Monocytes % (auto) 4.1 %; Neutrophils # (auto) 6.57 K/uL (1.40-6.50); Platelet Count 182 K/uL (130-400); RDW Coefficient of Variation 12.5 % (11.5-14.5); RDW Standard Deviation 39.5 fL (36.4-46.3); Red Blood Count 5.05 M/uL (4.70-6.10); White Blood Count 8.21 K/ul (4.8-10.8)
[2023-05-25] MEDS ORDERED: METOPROLOL SUCC 50MG EXT REL TAB PO SCH (09:00)
[2023-05-25 09:04] LABS: BUN Creatinine Ratio 14.8 (10-20); Calcium 9.2 mg/dl (8.6-10.3); Creatinine Clr Calc Pharmacy 139.4 ml/min; Est GFR (African American) 113.7 ml/min; Est GFR (Non-African American) 98.1 ml/min; Potassium 3.7 mmol/L (3.5-5.1)
--- NOTE | 2023-05-25 10:19 | Cardiology Consultation ---
Date of Consultation May 25, 2023 Assessment & Plan (1) Postoperative hypotension: (2) Hx laparoscopic cholecystectomy: (3) Noncompaction cardiomyopathy: (4) HFrEF (heart failure with reduced ejection fraction): Plan The patient's postoperative hypotension was most likely due to the effects of anesthesia in combination with uninterrupted continuation of medications specifically sacubitril/valsartan. His blood pressure has recovered and he is feeling well. Recommend continuing metoprolol without interruption. I would hold furosemide and spironolactone today then resume tomorrow morning. I would restart Entresto at 1/2 tablet twice a day starting tonight then increase the dose back to his regular dose as long as his blood pressure is acceptable. In the future, for surgery, I advised the patient to hold Entresto and diuretics the morning of the procedure and hold Farxiga 3 days prior to scheduled surgery; Metoprolol to be continued without interruption. Outpatient cardiology follow-up with [facility] who has been contacted to arrange for a f ollow-up blood pressure check later this week. Supervising Physician Co-Signing Physician Notes Agree with above PA-C assessment and plan. Patient discharged prior to evaluation by the undersigned. History of Present Illness Reason for Consultation: Post operative hypotension, cardiomyopathy Requesting Physician: Florecita Attending Physician: Vladimir History of Present Illness Mr. Pravin Dahl is a 52 year old male who underwent robotic assisted laparoscopic cholecystectomy by Dr. Kirk Gilbert without complication in the morning of May 24, 2023. Due to persistent postoperative hypotension the patient was admitted for observation. It should be noted that the patient took all of his outpatient medications the morning of the surgery except for Farxiga. He received IV fluids perioperatively. Last evening furosemide, spironolactone, and Entresto were held with improvement in blood pressure. Patient seen and examined at approximately 9:30 AM on May 25, 2023. He is without complaint. His most recent blood pressure reading was 116/69. He specifically denies chest pain, palpitations, shortness of breath, cough, chest congestion, orthopnea, PND, peripheral edema, fatigue, lightheadedness, dizziness, near syncope, fevers, or chills. + Controlled abdominal discomfort. No nausea or vomiting. No issues eating breakfast. No BM today. Past Medical and Surgical History: GeneticNon-CompactionDilatedNonischemic Cardiomyopathy, HFrEFand RV dysfunction. EF 20-25%. Status post April 23, 2020 Bi-V/ICD implantation Mild Mitral regurgitation Mild tricuspid regurgitation Hypertension Hyperlipidemia JULIO- unable to tolerate CPAP Prediabetes Family History: Not notable for premature CAD. Mother with lymphoma. Social History: Nonsmoker. No alcohol. No illegal drug use. pump machine operator, [employer]. . Allergies Allergy/AdvReac Type Severity Reaction Status Date / Time codeine AdvReac Unknown UPSET Verified 05/24/23 08:39 STOMACH Home Medications Medication Instructions Recorded Confirmed Type rosuvastatin 20 mg tablet 20 mg PO QAM 04/21/20 05/24/23 History dapagliflozin propanediol 10 mg 10 mg PO QAM 04/27/23 05/24/23 History tablet (Farxiga) metoprolol succinate 200 mg 200 mg PO QAM 04/27/23 05/24/23 History tablet,extended release 24 hr oxycodone 5 mg tablet 5 - 10 mg PO .[id number] PRN pain, 05/24/23 Rx for initial therapy, max 6 tabs per day #15 tabs furosemide 40 mg tablet 40 mg PO BID #30 tabs 05/25/23 05/24/23 Rx sacubitril 97 mg-valsartan 103 mg 0.5 tab PO BID #30 tabs 05/25/23 05/24/23 Rx tablet (Entresto) spironolactone 25 mg tablet 25 mg PO BID #30 tabs 05/25/23 05/24/23 Rx Patient History Medical History Cardiomyopathy Nonischemic. EF 10-15% at diagnosis 08/2019 when presented to [facility] in acute CHF. Hyperlipidemia Hypertension Myocardial Infarction 08/2019 Prediabetes Presence of combination internal cardiac defibrillator (ICD) and pacemaker Medtronic, implanted 2019 Sleep apnea Could note tolerate CPAP Surgical History History of cardiac cath 08/2019 > no stents History of tooth extraction Hx laparoscopic cholecystectomy (05/24/23) Robotic assisted Laparoscopic Cholecystectomy(Not Applicable) - Kirk Gilbert DO Family History Mother Family history of diabetes mellitus Social History Smoking Status: Never smoker Tobacco Type: Cigars Second Hand Exposure: No; Do You Dip or Chew Tobacco: No; Hx Alcohol Use: No Hx Substance Use: No Preferred Language: Upper Sorbian Communication Ability: Effective Visual Impairment: No Limitations Photo Mask Inspector Required: No Beliefs That Will Affect Care: None marital status: Current Living Situation: Spouse Current Living Situation Comment: and dog current occupational status: employed How many Children do You have: 2 Feels Safe at Home: Yes Assistive Devices: None Review of Systems Review of Systems: Complete review of systems is otherwise as stated above, negative, or noncontributory. Physical Exam Physical Exam: General: A&Ox3. NAD. HENT: Normocephalic. Atraumatic. Eyes: PER. Conjunctiva pink, sclera clear. Neck: No carotid bruits. No JVD. Heart: RRR. No murmur. No rub. No gallop. Lungs: Clear to auscultation. Abdomen: +BS. Extremities: Minimal edema. Excoriations without evidence of cellulitis. No clubbing. No cyanosis. Limited neurological examination is without focal deficits. Pulses: radial=2/4, posterior tibial=2/4. Results & Data Vital Signs (Past 12 Hours) Vital Signs Temp Pulse Pulse Resp BP Pulse Ox O2 Del Method 05/25/23 07:00 70 05/25/23 09:31 37.1 C 71 18 116/69 91 05/25/23 07:32 37.1 C 71 18 116/69 91 Room Air 05/25/23 03:01 37.3 C 70 18 122/72 90 Room Air 05/24/23 23:00 88 05/24/23 22:40 37.0 C 70 18 116/70 94 Room Air Laboratory Results CBC 05/25/23 Range/Units 08:22 WBC 8.21 (4.8-10.8) K/ul RBC 5.05 (4.70-6.10) M/uL Hgb 15.6 (14.0-18.0) g/dl Hct 44.1 (42.0-52.0) % Plt Count 182 (130-400) K/uL Neut # (Auto) 6.57 H (1.40-6.50) K/uL Lymph # (Auto) 1.18 L (1.2-3.4) K/uL [place] # (Auto) 0.34 (0.11-0.59) K/uL Eos # (Auto) 0.06 (0-0.50) K/uL Baso # (Auto) 0.03 (0-0.2) K/uL Comprehensive Metabolic Panel 05/25/23 Range/Units 08:22 Sodium 135 L (136-145) mmol/L Potassium 3.7 (3.5-5.1) mmol/L Chloride 101 (98-107) mmol/L Carbon Dioxide 29 (21-32) mmol/L BUN 13 (6-23) mg/dl Creatinine 0.88 (0.6-1.4) mg/dl Glucose 167 H (70-99(Fasting)) mg/dl Calcium 9.2 (8.6-10.3) mg/dl Intake and Output 05/24/23 05/25/23 05/25/23 22:59 06:59 14:59 Intake Total 2572.5 / 3197.5 0 / 3197.5 Balance 2572.5 / 3192.5 0 / 3192.5 Intake: IV 72.5 / 72.5 ceFAZolin 3000MG 72.5 ml @ 130 72.5 / 72.5 mls/hr IV PREOP MARIMAR Rx#: [id number] IV Perioperative 1999 / 2624 Oral 500 / 500 0 / 500 Other: # Unmeasured Voids 0 2 Weight 131.9 kg 130.5 kg 130.5 kg Weight Measurement Method Standing Scale Built in [facility] Patient Weight 05/26/23 06:59 Weight 130.5 kg Diagnostic Findings Device interrogation on May 09, 2023 demonstrated appropriate function. Only 12 months remaining longevity noted at that time. Lower rate set at 70 bpm. No AT/AF. 4 episodes of NSVT. No VT. No VF. Effective BiV pacing 84%. 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 No arrhythmias observed.
--- NOTE | 2023-05-25 13:39 | Discharge Summary ---
Date of Service May 25, 2023 Admission HPI Per Admitting Provider Patient is a 52-year-old male with history of cardiomyopathy , HFrEF with EF 22%, status post biventricular ICD, prediabetes, obesity, who underwent elective cholecystectomy today. Patient found hypotensive postoperatively, and was monitored in PACU by anesthesia. There were no complications during surgery identified, no hemorrhaging. Given his history of cardiomyopathy and low EF, it was recommended that patient stays overnight in the hospital and be closely monitored. Patient tells me he takes metoprolol 200 mg daily, spironolactone 25 mg twice a day, Entresto twice a day, and furosemide daily. He took all these medications in the morning. Currently he is lying in bed in PACU, he is alert oriented answering appropriately. He overall feels well, denies any chest pain or shortness of breath. He is breathing comfortably on room air. He has only minimal abdominal discomfort, and he feels hungry. Discussed with the nurse at the bedside at PACU. Patient received IV fluids. He has a room assigned on telemetry and awaiting transfer upstairs. Principal Diagnosis s/p laparoscopic cholecystectomy postoperative hypotension heart failure with reduced ejection fraction Discharge Exam awake/alert, no distress Respiratory normal respiratory effort Gastrointestinal (Abdomen) Inspection/Auscultation: + abdominal surgical incision (c/d/i with surgical dressings in place) Discharge Data Allergies Allergy/AdvReac Type Severity Reaction Status Date / Time codeine AdvReac Unknown UPSET Verified 05/24/23 08:39 STOMACH Consultations 05/24/23 16:27 Consult Hospitalist Routine 05/25/23 08:01 Consult Cardiology Routine Procedures Performed Operation Date: 05/24/23 09:40 Actual Procedures p Robotic assisted Laparoscopic Cholecystectomy(Not Applicable) - Kirk Gilbert DO Hospital Course (1) Hx laparoscopic cholecystectomy: This is a 52yM who presented to the [facility] on 05/24/23 for elective robotic assisted cholecystectomy. The patient tolerated the procedure well, see op note for full details. The patient recovered in the PACU. Anesthesia followed him closely and he was noted to have some soft pressures in the post op period. HRs stable. It was recommended given the patient's history of low EF and cardiomyopathy he be admitted for overnight observation. The patient otherwise was feeling well with no acute complaints. The hospitalists were consulted for their assistance in addition to cardiology who made recommendations on his home medication regimen. His BP improved. Patient tolerated a diet advancement and pa in remained well controlled. On POD#1 he was deemed stable for discharge to home with close follow up. Total Time Total Time Spent Total Time Spent (In Minutes): 15 Discharge Plan Discharge Items Patient Disposition: Home - Self-Care Reason For Visit: S/P ROBOT BLAYNE, H/O CARDIOMYOPATHY Discharge Diagnosis: Robotic assisted Laparoscopic Cholecystectomy Activity: As commented below Lifting: No more than 10 pounds Bathing Comment: you may shower 05/25/23 no bathes or hot tubs for 2 weeks Exercise/Sports: Wait until after follow-up appointment Non-emergency contact: Surgeon Call non-emergency contact if: you have any medication questions, your symptoms worsen, your pain is worsening, your pain is concerning for you, your temperature is above 101, your wound has increased redness, your wound has increased drainage and your wound pain has increased Follow-up/Referrals: Kirk Gilbert DO [Physician] - (call office for follow up appointment in 2 weeks ) Jada Rojas PA-C [Primary Care Provider] - Diet: Other - See Diet Comment Diet Comment: resume previous diet Addtl Attending Provider Instructions: You have surgical glue called dermabond on your surgical site incisions. You may shower with this on. This will tend to come off within a couple of weeks. Do not pick at it. You may purchase Tylenol and/or Ibuprofen over the counter if needed for additional pain control over the next few days. Take per manufacturers instructions Pending Studies at Discharge: Yes Studies:: surgical pathology Stand-Alone Forms: Anesthesia/Sedation, Adult, [facility] Medications and DC Order Prescriptions: New oxycodone 5 mg tablet 5 - 10 mg PO .[id number] PRN (Reason: pain, for initial therapy, max 6 tabs per day) Qty: 15 0RF Continued rosuvastatin 20 mg Tablet 20 mg PO QAM furosemide 40 mg Tablet 40 mg PO BID Qty: 30 0RF Rx Instructions: start tomorrow morning spironolactone 25 mg Tablet 25 mg PO BID Qty: 30 0RF Rx Instructions: start tomorrow morning metoprolol succinate 200 mg tablet extended release 24 hr 200 mg PO QAM Farxiga 10 mg tablet 10 mg PO QAM Changed Entresto 97-103 mg Tablet 0.5 tab PO BID Qty: 30 0RF Rx Instructions: start tonight Discharge Orders: Discharge Order (Routine); Ordered 05/25/23 Ordered By: Adam Keller/[place] Patient Handouts: DVT Post Op Prevention Admission Data Admit Date/Time: 05/24/23 16:11 Attending Provider: Kirk Gilbert Admit Provider: Kirk Gilbert Primary Care Provider: Jada Rojas Other Providers: Americo Avila ; Kristen Rascon ; Leeanne Eisenberg I. ; Kennedy Steel ; Selena Parisi ; Marcela Razo ; Uzma Babcock ; Carol Jennings ; José Miguel Jones ; Edy Cueva ; Adam Bernabe ; Beatrice Ulloa ; Duy Olivares ; No French ; Lulú Duong ; Vashti Avila ; Frank Fernandez ; Neda Fuller ; Fela Keller ; Reji Bo ; Tasia Witt I. ; Willie García ; Cherelle Kwok ; Baldo Tello ; Misty Magdaleno ; Nils Welch ; Saran Rueda ; Levi Clifford ; Fausto Shoemaker ; Yesy Gillis ; Hans Montaño ; Vianey Tyler Other Interventions: Discharge Summary Assessment (RN) Last Done: 05/25/23 09:31 Coding Level of Care Code 59508 IN/OBS DISCH 30 MIN/LESS Diagnoses Hx laparoscopic cholecystectomy Z90.49
--- NOTE | 2023-05-25 17:18 | Hospitalist Progress Note ---
Date of Service May 25, 2023 Assessment & Plan (1) Chronic HFrEF (heart failure with reduced ejection fraction): Plan: Postoperative hypotension. -Likely secondary to anesthesia Patient is a 52-year-old male with history of cardiomyopathy , HFrEF with EF 22%, status post biventricular ICD, prediabetes, obesity, who underwent elective cholecystectomy today. Postoperatively he was found hypotensive. Given his history of cardiomyopathy and low EF it was decided to observe patient overnight. Per anesthesia, hypotensive secondary to anesthesia. Patient follows w/ [facility] cardiology. Patient took his metoprolol, furosemide, Entresto, and spironolactone this morning. Received IV fluids perioperatively. We will hold his evening diuretics such as Entresto and spironolactone. Patient can continue with metoprolol in the morning. Reassess volume status and blood pressure tomorrow morning. Currently patient is breathing comfortably on room air and he is clear to auscultation. No lower extremity edema noted. Blood pressure already improved at 107/66. Continue to closely monitor hemodynamic status overnight. Clear liquid diet ordered by surgery. Admission and Anticipated Discharge Date Admission Date: May 24, 2023 Results & Data Results & Data Vital Signs (Past 12 Hours) Vital Signs Temp Pulse Pulse Resp BP Pulse Ox O2 Del Method 05/25/23 11:34 37.1 C 72 18 118/73 97 Room Air 05/25/23 07:00 70 05/25/23 09:31 37.1 C 71 18 116/69 91 05/25/23 07:32 37.1 C 71 18 116/69 91 Room Air
== END 2023-05-25 12:32 | disposition home or self-care (01) ==
LOC: ASU 08:09 → 2E 08:09